=== PATIENT | female | born 1990 | race Caucasian/White ===

== ENCOUNTER → 2016-10-02 | Outpatient (CLI) | payer OTHER ==
--- NOTE | 2016-10-02 13:47 | US ---
EXAMINATION TYPE: US OB <= 14 wk fetus DATE OF EXAM: 10/02/2016 1:19 PM COMPARISON: NONE CLINICAL HISTORY: Z36 CONFIRM DATES. EXAM PERFORMED: Transabdominal (TA) EXAM MEASUREMENTS: GESTATIONAL AGE / DATING Physician Established: not established Dates by LMP: unknown Dates by First Scan: no prior Dates by Current Scan for: (14 weeks/0 days) EDC: 04/02/2017 MATERNAL ANATOMY Uterus: 11.0 x 8.0 x 10 cm Right Ovary: not seen Left Ovary: not seen Post CDS / Adnexa: wnl Presence of free fluid: no Presence of corpus luteal cyst: no Presence of subchorionic bleed: no GESTATION / SURVEY CRL: 7.6 (13 weeks/5 days) Heart Rate: 143 bpm Rhythm: Normal IUP: Viable IUP BPD: 2.5 cm ,14week/ 3days HC: 9.2 cm, 14week/2 days FL : 1.1 cm 13week /2days Date of LMP: na Beta HcG (if available): na IMPRESSION: Single viable intrauterine .
[2016-10-02 13:50] LABS: CH 32.6; HCT 35.5 % (34.0-46.0); HDW 2.25; HGB 11.9 gm/dL (11.4-16.0); MCH 32.5 pg (25.0-35.0); MCHC 33.7 g/dL (31.0-37.0); MCV 96.4 fL (80.0-100.0); Mean Platelet Volume 6.5; RBC 3.68 m/uL (3.80-5.40); RDW 13.2 % (11.5-15.5); WBC 10.9 k/uL (3.8-10.6)
[2016-10-02 14:06] LABS: Glucose 74 mg/dL (74-99); Non-African American GFR(MDRD) >60 (>60 ml/min/1.73 sqM)
[2016-10-02 14:37] LABS: Hepatitis B Surface Ag Index 0.06
[2016-10-04 13:25] LABS: HIV-1/HIV-2 Ab Screen NONREAC (NON REAC)
== END | disposition home or self-care (01) ==
LOC: RADUSWWP 12:41
PROVIDERS: ATTEND Obstetrics & Gynecology
DX: Z36 Encounter for antenatal screening of mother (principal); Z34.80 Encounter for supervision of other normal pregnancy, unspecified trimester; Z3A.14 14 weeks gestation of pregnancy
CPT/HCPCS: 76801; 82565; 82947; 85027; 86762; 86780; 86850; 86900; 86901; 87340; 87389

== ENCOUNTER → 2016-11-14 | Outpatient (CLI) | payer OTHER ==
[2016-11-17 11:49] LABS: Alpha Fetoprotein 34.3 ng/mL; Alpha Fetoprotein (M.O.M) 0.55 (Negative); B-HCG (M.O.M.) 1.07; Gestational Age (days) 1; Inhibin A (M.O.M.) 0.98; Interpretation SeeBelow; Maternal Age at EDD (Yrs) 29; Unconjugated Estriol (M.O.M.) 1.01
== END | disposition home or self-care (01) ==
LOC: LABWHC1 14:06
PROVIDERS: ATTEND Obstetrics & Gynecology
DX: Z34.82 Encounter for supervision of other normal pregnancy, second trimester (principal); Z3A.00 Weeks of gestation of pregnancy not specified
CPT/HCPCS: 36415; 82105; 82677; 84702; 86336

== ENCOUNTER → 2017-02-05 | Outpatient (CLI) | payer OTHER ==
[2017-02-05 16:26] LABS: CH 31.9; CHCM 33.7; HCT 34.2 % (34.0-46.0); HDW 2.51; HGB 11.7 gm/dL (11.4-16.0); MCH 32.6 pg (25.0-35.0); MCHC 34.2 g/dL (31.0-37.0); MCV 95.3 fL (80.0-100.0); Mean Platelet Volume 6.6; RBC 3.59 m/uL (3.80-5.40); RDW 12.7 % (11.5-15.5)
== END | disposition home or self-care (01) ==
LOC: LABWHC1 14:57
PROVIDERS: ATTEND Obstetrics & Gynecology
DX: Z34.82 Encounter for supervision of other normal pregnancy, second trimester (principal); Z3A.00 Weeks of gestation of pregnancy not specified
CPT/HCPCS: 36415; 82950; 85027

== ENCOUNTER 2020-08-24 20:24 | Emergency (ER) | payer OTHER ==
[2020-08-24 20:30] VITALS: TEMP 98.5
[2020-08-24] MEDS ORDERED: LORazepam 2 MG/ML INJ IM STA (21:00)
--- NOTE | 2020-08-24 21:25 | XR ---
EXAMINATION TYPE: XR chest 2V DATE OF EXAM: 08/24/2020 COMPARISON: NONE HISTORY: Shortness of breath. TECHNIQUE: Frontal and lateral views of the chest are obtained. FINDINGS: There is no focal air space opacity, pleural effusion, or pneumothorax seen. The cardiac silhouette size is within normal limits. The osseous structures are intact. IMPRESSION: No acute cardiopulmonary process.
[2020-08-24 21:34] LABS: Anisocytosis Slight; Basophils # (A) 0.1 k/uL (0-0.2); Basophils % (A) 1 %; Eosinophils # (A) 0.8 k/uL (0-0.7); Eosinophils % (A) 9 %; HCT 35.7 % (34.0-46.0); HGB 11.9 gm/dL (11.4-16.0); Hypochromasia Slight; Lymphocytes # (A) 1.8 k/uL (1.0-4.8); Lymphocytes % (A) 19 %; MCH 26.4 pg (25.0-35.0); MCHC 33.2 g/dL (31.0-37.0); MCV 79.4 fL (80.0-100.0); Microcytosis Slight; Monocytes # (A) 0.6 k/uL (0-1.0); Monocytes % (A) 7 %; Neutrophils # (A) 5.8 k/uL (1.3-7.7); Neutrophils % (A) 62 %; Platelet Count 544 k/uL (150-450); RDW 16.8 % (11.5-15.5); WBC 9.2 k/uL (3.8-10.6)
--- NOTE | 2020-08-24 21:34 | ED ---
General Adult HPI - General Chief complaint: Shortness of Breath Stated complaint: DANIEL Source: patient, RN notes reviewed Mode of arrival: ambulatory Limitations: no limitations - History of Present Illness Initial comments: 30-year-old female without any significant past medical history presents to the emergency room for a chief complaint of shortness of breath. Patient states that she has been short of breath for the past 3 days. States that since her shortness of breath started she has started to have panic attacks. She did see her doctor who started her on BuSpar. Patient is nervous that the initial shortness of breath is not related to the panic attacks. She states she was having swelling in her ankles that has since resolved.she denies any associated chest pain with the shortness of breath. She denies any thoughts of harming herself or anyone else. Patient has no other complaints at this time including chest pain, abdominal pain, nausea or vomiting, headache, or visual changes. - Related Data Home Medications Medication Instructions Recorded Confirmed Hydrochlorothiazide 12.5 mg PO DAILY 08/24/20 08/24/20 [hydroCHLOROthiazide] busPIRone HCL 10 mg PO BID 08/24/20 08/24/20 Previous Rx's Medication Instructions Recorded Amoxicillin 875 mg PO Q12HR #20 tablet 08/24/20 Allergies Allergy/AdvReac Type Severity Reaction Status Date / Time ceftriaxone sodium Allergy Rash/Hives Verified 08/24/20 21:52 [From Rocephin] Review of Systems ROS Statement: Those systems with pertinent positive or pertinent negative responses have been documented in the HPI. ROS Other: All systems not noted in ROS Statement are negative. Past Medical History Past Medical History: No Reported History History of Any Multi-Drug Resistant Organisms: None Reported Past Surgical History: Adenoidectomy, Section Additional Past Surgical History / Comment(s): D&C Past Anesthesia/Blood Transfusion Reactions: No Reported Reaction Past Psychological History: Anxiety Smoking Status: Current every day smoker Past Alcohol Use History: None Reported Past Drug Use History: None Reported - Past Family History Mother Family Medical History: No Reported History General Exam Limitations: no limitations General appearance: anxious (Hyperventilating, crying) Head exam: Present: atraumatic, normocephalic, normal inspection Eye exam: Present: normal appearance, PERRL, EOMI. Absent: scleral icterus, conjunctival injection, periorbital swelling ENT exam: Present: normal exam, mucous membranes moist Neck exam: Present: normal inspection, full ROM. Absent: tenderness, meningismus, lymphadenopathy Respiratory exam: Present: normal lung sounds bilaterally, other (tachypneic Secondary to panic attack). Absent: respiratory distress, wheezes, rales, rhonchi, stridor Cardiovascular Exam: Present: regular rate, normal rhythm, normal heart sounds. Absent: systolic murmur, diastolic murmur, rubs, gallop, clicks GI/Abdominal exam: Present: soft, normal bowel sounds. Absent: distended, tenderness, guarding, rebound, rigid Neurological exam: Present: alert Course Vital Signs 08/24/20 08/24/20 20:26 23:14 Temperature 98.5 F Pulse Rate 105 H 73 Respiratory 20 18 Rate Blood Pressure 152/97 130/94 O2 Sat by Pulse 97 100 Oximetry - Reevaluation(s) Reevaluation #1: 08/24/20 21:34 When patient initially seen she was coaxed through a panic attack. She is put on 2 L of oxygen and told to slow her breathing. She did start to feel better. EKG Findings - EKG Comments: EKG Findings:: Sinus tachycardia, ventricular rate 107, OH interval 124, QTc 509 Medical Decision Making - Medical Decision Making Vitals are stable. Patient initially was having a panic attack. She was given Ativan and coaxed through her breathing. She started to feel much better. Patient is now well-appearing. She is 100% on room air. CBC and CMP are unremarkable. D-dimer slightly elevated. CT was obtained which did show a mild subpleural interstitial density in the posterior lung soria. Patient is noted to be coughing, will be treated with antibiotics. Patient was initially refusing Covid test through her stay. I did eventually talk her into getting this. At this time patient will be discharged home to follow up with primary care. We will follow up with her on her results of her Covid test. She was directed not to drive home. She will return here for any worsening symptoms. - Lab Data Result diagrams: 08/24/20 21:16 08/24/20 21:16 Lab Results 08/24/20 08/24/20 08/24/20 Range/Units 21:16 21:16 21:16 WBC 9.2 (3.8-10.6) k/uL RBC 4.50 (3.80-5.40) m/uL Hgb 11.9 (11.4-16.0) gm/dL Hct 35.7 (34.0-46.0) % MCV 79.4 L (80.0-100.0) fL MCH 26.4 (25.0-35.0) pg MCHC 33.2 (31.0-37.0) g/dL RDW 16.8 H (11.5-15.5) % Plt Count 544 H (150-450) k/uL MPV 7.0 Neutrophils % 62 % Lymphocytes % 19 % Monocytes % 7 % Eosinophils % 9 % Basophils % 1 % Neutrophils # 5.8 (1.3-7.7) k/uL Lymphocytes # 1.8 (1.0-4.8) k/uL Monocytes # 0.6 (0-1.0) k/uL Eosinophils # 0.8 H (0-0.7) k/uL Basophils # 0.1 (0-0.2) k/uL Hypochromasia Slight Anisocytosis Slight Microcytosis Slight PT 9.4 (9.0-12.0) sec INR 0.8 (<1.2) APTT 23.1 (22.0-30.0) sec D-Dimer 0.68 H (<0.60) mg/L FEU Sodium (137-145) mmol/L Potassium (3.5-5.1) mmol/L Chloride (98-107) mmol/L Carbon Dioxide (22-30) mmol/L Anion Gap mmol/L BUN (7-17) mg/dL Creatinine (0.52-1.04) mg/dL Est GFR (CKD-EPI)AfAm (>60 ml/min/1.73 sqM) Est GFR (CKD-EPI)NonAf (>60 ml/min/1.73 sqM) Glucose (74-99) mg/dL Calcium (8.4-10.2) mg/dL Total Bilirubin (0.2-1.3) mg/dL AST (14-36) U/L ALT (4-34) U/L Alkaline Phosphatase (38-126) U/L Troponin I (0.000-0.034) ng/mL NT-Pro-B Natriuret Pep pg/mL Total Protein (6.3-8.2) g/dL Albumin (3.5-5.0) g/dL Urine Color Colorless Urine Appearance Clear (Clear) Urine pH 7.5 (5.0-8.0) Ur Specific [place] 1.003 (1.001-1.035) Urine Protein Negative (Negative) Urine Glucose (UA) Negative (Negative) Urine Ketones Negative (Negative) Urine Blood Negative (Negative) Urine Nitrite Negative (Negative) Urine Bilirubin Negative (Negative) Urine Urobilinogen <2.0 (<2.0) mg/dL Ur Leukocyte Esterase Negative (Negative) Urine HCG, Qual (Not Detectd) 08/24/20 08/24/20 08/24/20 Range/Units 21:16 21:16 21:16 WBC (3.8-10.6) k/uL RBC (3.80-5.40) m/uL Hgb (11.4-16.0) gm/dL Hct (34.0-46.0) % MCV (80.0-100.0) fL MCH (25.0-35.0) pg MCHC (31.0-37.0) g/dL RDW (11.5-15.5) % Plt Count (150-450) k/uL MPV Neutrophils % % Lymphocytes % % Monocytes % % Eosinophils % % Basophils % % Neutrophils # (1.3-7.7) k/uL Lymphocytes # (1.0-4.8) k/uL Monocytes # (0-1.0) k/uL Eosinophils # (0-0.7) k/uL Basophils # (0-0.2) k/uL Hypochromasia Anisocytosis Microcytosis PT (9.0-12.0) sec INR (<1.2) APTT (22.0-30.0) sec D-Dimer (<0.60) mg/L FEU Sodium 138 (137-145) mmol/L Potassium 4.0 (3.5-5.1) mmol/L Chloride 99 (98-107) mmol/L Carbon Dioxide 30 (22-30) mmol/L Anion Gap 9 mmol/L BUN 8 (7-17) mg/dL Creatinine 0.71 (0.52-1.04) mg/dL Est GFR (CKD-EPI)AfAm >90 (>60 ml/min/1.73 sqM) Est GFR (CKD-EPI)NonAf >90 (>60 ml/min/1.73 sqM) Glucose 92 (74-99) mg/dL Calcium 10.4 H (8.4-10.2) mg/dL Total Bilirubin 0.3 (0.2-1.3) mg/dL AST 30 (14-36) U/L ALT 25 (4-34) U/L Alkaline Phosphatase 50 (38-126) U/L Troponin I <0.012 (0.000-0.034) ng/mL NT-Pro-B Natriuret Pep pg/mL Total Protein 7.7 (6.3-8.2) g/dL Albumin 4.7 (3.5-5.0) g/dL Urine Color Urine Appearance (Clear) Urine pH (5.0-8.0) Ur Specific [place] (1.001-1.035) Urine Protein (Negative) Urine Glucose (UA) (Negative) Urine Ketones (Negative) Urine Blood (Negative) Urine Nitrite (Negative) Urine Bilirubin (Negative) Urine Urobilinogen (<2.0) mg/dL Ur Leukocyte Esterase (Negative) Urine HCG, Qual Not Detected (Not Detectd) 08/24/20 Range/Units 21:16 WBC (3.8-10.6) k/uL RBC (3.80-5.40) m/uL Hgb (11.4-16.0) gm/dL Hct (34.0-46.0) % MCV (80.0-100.0) fL MCH (25.0-35.0) pg MCHC (31.0-37.0) g/dL RDW (11.5-15.5) % Plt Count (150-450) k/uL MPV Neutrophils % % Lymphocytes % % Monocytes % % Eosinophils % % Basophils % % Neutrophils # (1.3-7.7) k/uL Lymphocytes # (1.0-4.8) k/uL Monocytes # (0-1.0) k/uL Eosinophils # (0-0.7) k/uL Basophils # (0-0.2) k/uL Hypochromasia Anisocytosis Microcytosis PT (9.0-12.0) sec INR (<1.2) APTT (22.0-30.0) sec D-Dimer (<0.60) mg/L FEU Sodium (137-145) mmol/L Potassium (3.5-5.1) mmol/L Chloride (98-107) mmol/L Carbon Dioxide (22-30) mmol/L Anion Gap mmol/L BUN (7-17) mg/dL Creatinine (0.52-1.04) mg/dL Est GFR (CKD-EPI)AfAm (>60 ml/min/1.73 sqM) Est GFR (CKD-EPI)NonAf (>60 ml/min/1.73 sqM) Glucose (74-99) mg/dL Calcium (8.4-10.2) mg/dL Total Bilirubin (0.2-1.3) mg/dL AST (14-36) U/L ALT (4-34) U/L Alkaline Phosphatase (38-126) U/L Troponin I (0.000-0.034) ng/mL NT-Pro-B Natriuret Pep 36 pg/mL Total Protein (6.3-8.2) g/dL Albumin (3.5-5.0) g/dL Urine Color Urine Appearance (Clear) Urine pH (5.0-8.0) Ur Specific [place] (1.001-1.035) Urine Protein (Negative) Urine Glucose (UA) (Negative) Urine Ketones (Negative) Urine Blood (Negative) Urine Nitrite (Negative) Urine Bilirubin (Negative) Urine Urobilinogen (<2.0) mg/dL Ur Leukocyte Esterase (Negative) Urine HCG, Qual (Not Detectd) Disposition Clinical Impression: Pneumonia, Shortness of breath, Prolonged QT interval Disposition: HOME SELF-CARE Condition: Good Instructions (If sedation given, give patient instructions): Shortness of Breath (ED) Additional Instructions: Please up with primary care in 1-2 days. Follow up on Covid results. Take antibiotic as directed. Discontinue BuSpar. Follow up with cardiology. Return to the emergency room for any worsening symptoms. Prescriptions: Amoxicillin 875 mg PO Q12HR #20 tablet Is patient prescribed a controlled substance at d/c from ED?: No Referrals: Casi Payne MD [Primary Care Provider] - 1-2 days Te Washburn MD [STAFF PHYSICIAN] - 1-2 days Time of Disposition: 23:43
[2020-08-24 21:38] LABS: ALT 25 U/L (4-34); AST 30 U/L (14-36); African American GFR (CKD) >90 (>60 ml/min/1.73 sqM); Albumin 4.7 g/dL (3.5-5.0); Alkaline Phosphatase 50 U/L (38-126); Anion Gap 9 mmol/L; Blood Urea Nitrogen 8 mg/dL (7-17); Calcium 10.4 mg/dL (8.4-10.2); Carbon Dioxide 30 mmol/L (22-30); Chloride 99 mmol/L (98-107); Glucose 92 mg/dL (74-99); Non-African American GFR(CKD) >90 (>60 ml/min/1.73 sqM); Sodium 138 mmol/L (137-145); Total Bilirubin 0.3 mg/dL (0.2-1.3); Total Protein 7.7 g/dL (6.3-8.2)
[2020-08-24 21:52] LABS: INR 0.8 (<1.2); Partial Thromboplastin Time 23.1 sec (22.0-30.0); Prothrombin Time 9.4 sec (9.0-12.0)
[2020-08-24 21:54] LABS: D-Dimer 0.68 mg/L FEU (<0.60)
[2020-08-24 22:46] LABS: Appearance,Urine Clear (Clear); Bilirubin,Urine Negative (Negative); Blood,Urine Negative (Negative); Color,Urine Colorless; Glucose,Urine (UA) Negative (Negative); Ketones,Urine Negative (Negative); Leukocyte Esterase,Urine Negative (Negative); Nitrite,Urine Negative (Negative); PH, Urine 7.5 (5.0-8.0); Protein,Urine Negative (Negative); Specific Gravity,Urine 1.003 (1.001-1.035); Urobilinogen,Urine <2.0 mg/dL (<2.0)
--- NOTE | 2020-08-24 23:14 | CT ---
EXAMINATION TYPE: CT chest angio for PE DATE OF EXAM: 08/24/2020 COMPARISON: None HISTORY: r/o PE Chest pain CT DLP: 241.9 mGycm Automated exposure control for dose reduction was used. CONTRAST: Performed with IV Contrast, patient injected with 60 ml mL of Isovue 370. There are 3-D post processed images. There is minimal interstitial subpleural density in the posterior lung soria. There is no pleural ef fusion. There is no pericardial effusion. Heart size is normal. There is no evidence of a pulmonary m ass. There are a few bronchial lymph nodes up to 1 cm. Thoracic aorta is intact. There is no aneurysm or dissection. There is no evidence of filling defect in the pulmonary arteries. The thoracic spine is intact. Sternum is intact. IMPRESSION: Negative exam. No evidence of pulmonary embolism. Mild subpleural interstitial density in the posteri or lung soria.
[2020-08-24 23:15] VITALS: BP 130/94; PULSE 73; RESP 18
[2020-08-24] MEDS ORDERED: AMOXICILLIN 875 MG TAB PO STA (23:52)
== END 2020-08-25 00:06 | disposition home or self-care (01) ==
LOC: EC 20:24
DX: J18.9 Pneumonia, unspecified organism (principal); R94.31 Abnormal electrocardiogram [ECG] [EKG]; R79.89 Other specified abnormal findings of blood chemistry; J98.4 Other disorders of lung; F41.9 Anxiety disorder, unspecified; F17.200 Nicotine dependence, unspecified, uncomplicated; Z20.822 Contact with and (suspected) exposure to COVID-19; Z79.899 Other long term (current) drug therapy; Z88.1 Allergy status to other antibiotic agents
CPT/HCPCS: 36415; 93005; 85379; 83880; 80053; 84484; 85025; 85610; 85730; 81003; 81025; 87635; 71046; 71275; 99285; 96372; J2060; Q9967

== ENCOUNTER 2020-10-08 02:08 | Emergency (ER) | payer OTHER ==
[2020-10-08 02:18] VITALS: BP 137/88; PULSE 84; RESP 20; TEMP 98.3
[2020-10-08] MEDS ORDERED: AMOXIC-POT CLAV 875-125MG 1 EACH TAB PO STA (02:33)
[2020-10-08] MEDS ORDERED: AMOXIC-POT CLAV 875MG STARTER PACK 2 TAB BTL PO STA (02:33)
--- NOTE | 2020-10-08 02:33 | ED ---
ENT HPI - General Chief complaint: ENT Stated complaint: foreign body in nose Time Seen by Provider: 10/08/20 02:17 Source: patient Mode of arrival: ambulatory Limitations: no limitations - Related Data Home Medications Medication Instructions Recorded Confirmed Hydrochlorothiazide 12.5 mg PO DAILY 08/24/20 08/24/20 [hydroCHLOROthiazide] busPIRone HCL 10 mg PO BID 08/24/20 08/24/20 Previous Rx's Medication Instructions Recorded Amoxicillin 875 mg PO Q12HR #20 tablet 08/24/20 Allergies Allergy/AdvReac Type Severity Reaction Status Date / Time ceftriaxone sodium Allergy Rash/Hives Verified 10/08/20 02:18 [From Rocephin] Review of Systems ROS Statement: Those systems with pertinent positive or pertinent negative responses have been documented in the HPI. ROS Other: All systems not noted in ROS Statement are negative. Past Medical History Past Medical History: No Reported History History of Any Multi-Drug Resistant Organisms: None Reported Past Surgical History: Adenoidectomy, Section Additional Past Surgical History / Comment(s): D&C Past Anesthesia/Blood Transfusion Reactions: No Reported Reaction Past Psychological History: Anxiety Smoking Status: Current every day smoker Past Alcohol Use History: None Reported Past Drug Use History: None Reported - Past Family History Mother Family Medical History: No Reported History General Exam Limitations: no limitations Course Vital Signs 10/08/20 02:15 Temperature 98.3 F Pulse Rate 84 Respiratory 20 Rate Blood Pressure 137/88 O2 Sat by Pulse 100 Oximetry Disposition Clinical Impression: Foreign body in nose Disposition: HOME SELF-CARE Condition: Good Instructions (If sedation given, give patient instructions): Nasal Foreign Body in Children (ED) Is patient prescribed a controlled substance at d/c from ED?: No Referrals: Hardik Shine DO [Doctor of Osteopathic Medicine] - 1-2 days
== END 2020-10-08 02:44 | disposition home or self-care (01) ==
LOC: EC 02:08
DX: T17.1XXA Foreign body in nostril, initial encounter (principal); F17.200 Nicotine dependence, unspecified, uncomplicated; F41.9 Anxiety disorder, unspecified; X58.XXXA Exposure to other specified factors, initial encounter
CPT/HCPCS: 99282

== ENCOUNTER 2021-01-26 20:44 | Emergency (ER) | payer OTHER ==
[2021-01-26 20:50] VITALS: BP 159/92; PULSE 126; RESP 20; TEMP 99.8
--- NOTE | 2021-01-26 21:12 | ED ---
ENT HPI - General Chief complaint: ENT Stated complaint: Nasal Injury Time Seen by Provider: 01/26/21 21:01 Source: patient, family Mode of arrival: ambulatory Limitations: no limitations - History of Present Illness Initial comments: Patient is a 30-year-old woman who presents with concern that she has a nasal septal perforation. The patient notes that for past days or so, it has seemed that sometimes when she blows her nose of air will move from one side of the septum to the other. She states that she had been using an [id number] nasal spray going back for months due to chronic nasal congestion. She did stop using [id number] medicine probably about a week ago. No epistaxis. No fever or chills. No purulent drainage. MD complaint: other Onset/Timin -: days(s) Location: nose Severity scale (1-10): 0 Consistency: constant Improves with: none Worsens with: none - Related Data Home Medications Medication Instructions Recorded Confirmed Hydrochlorothiazide 12.5 mg PO DAILY 08/24/20 08/24/20 [hydroCHLOROthiazide] busPIRone HCL 10 mg PO BID 08/24/20 08/24/20 Previous Rx's Medication Instructions Recorded Amoxicillin 875 mg PO Q12HR #20 tablet 08/24/20 Allergies Allergy/AdvReac Type Severity Reaction Status Date / Time ceftriaxone sodium Allergy Rash/Hives Verified 01/26/21 20:50 [From Rocephin] Review of Systems ROS Statement: Those systems with pertinent positive or pertinent negative responses have been documented in the HPI. ROS Other: All systems not noted in ROS Statement are negative. Constitutional: Denies: fever, chills Eyes: Denies: eye pain, eye discharge ENT: Reports: congestion. Denies: ear pain, throat pain, dental pain, epistaxis Respiratory: Denies: cough, dyspnea Neurological: Denies: headache Past Medical History Past Medical History: No Reported History History of Any Multi-Drug Resistant Organisms: None Reported Past Surgical History: Adenoidectomy, Section Additional Past Surgical History / Comment(s): D&C Past Anesthesia/Blood Transfusion Reactions: No Reported Reaction Past Psychological History: Anxiety Smoking Status: Current every day smoker Past Alcohol Use History: None Reported Past Drug Use History: None Reported - Past Family History Mother Family Medical History: No Reported History General Exam Limitations: no limitations General appearance: alert, in no apparent distress Head exam: Present: atraumatic, normocephalic Eye exam: Present: normal appearance. Absent: scleral icterus, conjunctival injection ENT exam: Present: normal oropharynx, mucous membranes moist, TM's normal bilaterally, normal external ear exam, other (There does appear to be small perforation to the nasal septum. There is no evidence of infection. No abnormal erythema.) Neck exam: Present: normal inspection Respiratory exam: Present: normal lung sounds bilaterally. Absent: respiratory distress, wheezes, rales, rhonchi, stridor Cardiovascular Exam: Present: regular rate, normal rhythm, normal heart sounds. Absent: systolic murmur, diastolic murmur, rubs, gallop Skin exam: Present: warm, dry, intact, normal color. Absent: rash Course Vital Signs 01/26/21 20:47 Temperature 99.8 F H Pulse Rate 126 H Respiratory 20 Rate Blood Pressure 159/92 O2 Sat by Pulse 98 Oximetry Medical Decision Making - Medical Decision Making Patient is 30-year-old woman presenting with perforated nasal septum. No evidence of active infection. Discussed appropriate further care and follow-up, as well as avoiding [id number] nasal sprays. She'll follow with the ENT physician. Disposition Clinical Impression: Perforated nasal septum Disposition: HOME SELF-CARE Condition: Good Instructions (If sedation given, give patient instructions): Septoplasty (DC) Is patient prescribed a controlled substance at d/c from ED?: No Referrals: None,Stated [Primary Care Provider] - 1-2 days Vitaliy Mathew MD [STAFF PHYSICIAN] - 1-2 days
== END 2021-01-26 21:28 | disposition home or self-care (01) ==
LOC: EC 20:44
DX: J34.89 Other specified disorders of nose and nasal sinuses (principal); F17.200 Nicotine dependence, unspecified, uncomplicated; Z88.1 Allergy status to other antibiotic agents
CPT/HCPCS: 99283